=== PATIENT | female | born 1995 | race Two or more races ===

== ENCOUNTER 2017-11-15 16:46 | Emergency (ER) | payer OTHER ==
--- NOTE | 2017-11-15 17:52 | ER Document Report ---
ED GI/ - General Chief Complaint: Vaginal Bleeding Stated Complaint: LOWER BACK PAINS Time Seen by Provider: 11/15/17 17:34 Notes: Patient is a 22-year-old female presents emergency department the chief complaint of pelvic cramping and vaginal spotting. Patient states that she is concerned that she is . Patient states that she had a last menstrual period September 28- after taking Plan B. States that she is sexually active with her and using condoms only. She states that she is taking 5 tests which have all been negative prior to arrival. She states that she has had mild spotting over the past 2 days with mild pelvic cramping and that she is due for her period. She states that she normally gets her menstrual period at the end of the month and sometimes it is 1-2 weeks late. Otherwise she denies any vaginal pain, pyuria, flank pain, nausea or vomiting. She states that she has been spotting and only notices it on the paper when she wipes. She has not had to utilize a pad - Related Data Allergies/Adverse Reactions: No Known Allergies Allergy (Unverified 11/15/17 16:50) Past Medical History - General Last Menstrual Period: August - Social History Smoking Status: Unknown if Ever Smoked Family History: Reviewed & Not Pertinent Patient has suicidal ideation: No Patient has homicidal ideation: No Renal/ Medical History: Denies: Hx Peritoneal Dialysis Review of Systems - Review of Systems Constitutional: No symptoms reported EENT: No symptoms reported Cardiovascular: No symptoms reported Respiratory: No symptoms reported Gastrointestinal: No symptoms reported Genitourinary: No symptoms reported Female Genitourinary: See HPI -: Yes All other systems reviewed and negative Physical Exam - Vital signs Vitals: Temp Pulse Resp BP Pulse Ox 98.9 F 79 16 113/67 98 11/15/17 16:52 11/15/17 16:52 11/15/17 16:52 11/15/17 16:52 11/15/17 16:52 - Notes Notes: PHYSICAL EXAM GENERAL: Alert, interacts well. HEAD: Normocephalic, atraumatic. EYES: Pupils equal, round, and reactive to light. Extraocular movements intact. ENT: Oral mucosa moist, tongue midline. NECK: Full range of motion. Supple. Trachea midline. LUNGS: Clear to auscultation bilaterally, no wheezes, rales, or rhonchi. No respiratory distress. HEART: Regular rate and rhythm. No murmurs, gallops, or rubs. ABDOMEN: Soft, nondistended, nontender. No guarding, rebound, or rigidity.. Bowel sounds present in all 4 quadrants. Female exam deferred EXTREMITIES: Moves all 4 extremities spontaneously. No edema, radial and dorsalis pedis pulses 2/4 bilaterally. No cyanosis. NEUROLOGICAL: Alert and oriented x4. Normal speech. PSYCH: Normal affect, normal mood. SKIN: Warm, dry, normal turgor. No rashes or lesions noted. Course - Re-evaluation Re-evalutation: 11/15/17 19:09 Presentation is most consistent with menstrual uterine bleeding and otherwise well-appearing patient. She is not . No tachycardia or hypotension. Examination is otherwise unremarkable. She denies bleeding through more than 2 pads an hour at any point in time. No indication for ultrasound at this time based on benign exam, vitals and laboratories. No active bleeding at this time. Patient will be started on oral control pills to help discontinue the bleeding. She has been encouraged to follow-up with CONSTRUCTION REPRESENTATIVE. Return precautions have been discussed. - Vital Signs Vital signs: Temp Pulse Resp BP Pulse Ox 99.3 F 79 15 103/65 99 11/15/17 20:05 11/15/17 20:05 11/15/17 20:05 11/15/17 20:05 11/15/17 20:05 - Laboratory Laboratory results interpreted by me: 11/15/17 18:00 Urine Urobilinogen 4.0 H Urine Ascorbic Acid 40 H Discharge - Discharge Clinical Impression: Spotting Condition: Good Disposition: HOME, SELF-CARE Additional Instructions: VAGINAL BLEEDING: You are having an episode of abnormal bleeding. Causes of abnormal vaginal bleeding can include miscarriage or tubal , tumors such as cancer or benign fibroids, medication effects, or hormone imbalance. Testing can eliminate unsuspected , tumors, or infection as a cause. "Dysfunctional uterine bleeding" is due to hormone imbalance, and is especially common at times when the normal cycle is disturbed -- whether by recent , use of control pills or hormones, or impending menopause. If the bleeding is innocent, most commonly a short course of hormones is given to restore the uterus to normal. Sometimes, the normal menstrual cycle corrects itself naturally. Sometimes , brief hormone therapy, or even a D&C is required. Your physician will advise you. Treatment for anemia may be required if bleeding is severe. You should rest and avoid intercourse until the bleeding is controlled. Call the doctor or return for re-examination if you feel faint, have increasing pain, or have a major increase in the amount of bleeding. NORMAL EXAM AND WORKUP: At this time, except for vaginal bleeding, your examination and workup show no significant abnormality. No significant abnormal physical findings were noted. All laboratory, EKG, and imaging (x-ray, CT scans, ultrasound) studies that were ordered show no significant abnormality. Although your examination and all studies that were ordered showed no significant abnormal finding, there are no examinations and no studies that are 100% accurate. There is always the possibility that some abnormality could exist and not be detected with physical examination or within the limits and capabilities of laboratory and other studies. You should return or follow up as you were instructed on your visit today for further evaluation if your symptoms do not resolve. FOLLOW-UP CARE: If you have been referred to a physician for follow-up care, call the physician s office for an appointment as you were instructed or within the next two days. If you experience worsening or a significant change in your symptoms (very heavy bleeding with large clots of blood, passage of tissue, more severe abdominal / pelvic pain or cramping, feeling faint or severe weakness, fever, etc.), notify the physician immediately or return to the Emergency Department at any time for re-evaluation. OBSTETRIC-GYNECOLOGIC (OB-ORTHOTICS PROSTHETICS TECHNICIAN) [facility]YSICI[facility] IN [place]: [facility] [address] [place] [address] [phone] Referrals: [facility] [Provider Group] - Follow up in 1 week
[2017-11-15 18:39] LABS: APPEARANCE,URINE SLIGHTLY-CLOUDY; BILIRUBIN,URINE NEGATIVE (NEGATIVE); COLOR,URINE YELLOW; GLUCOSE, URINE NEGATIVE (NEGATIVE); KETONES,URINE NEGATIVE (NEGATIVE); LEUKOCYTE ESTERASE,URINE NEGATIVE (NEGATIVE); NITRITE,URINE NEGATIVE (NEGATIVE); PROTEIN,URINE NEGATIVE (NEGATIVE); URINE SPECIFIC GRAVITY 1.031
[2017-11-15 20:06] VITALS: BP 103/65
== END 2017-11-15 20:07 | disposition home or self-care (01) ==
LOC: ER 16:46
DX: N93.9 Abnormal uterine and vaginal bleeding, unspecified (principal); R10.2 Pelvic and perineal pain; Z32.02 Encounter for pregnancy test, result negative
CPT/HCPCS: 81001; 81025; 99284

== ENCOUNTER 2018-04-28 19:18 | Emergency (ER) | payer OTHER ==
--- NOTE | 2018-04-28 19:50 | ER Document Report ---
ED Medical Screen (RME) - General Chief Complaint: Overdose Stated Complaint: HEAD PAIN, POSSIBLE PANIC ATTACK Time Seen by Provider: 04/28/18 19:47 Notes: 22 years old female who never lived with her parents raised by her account, from childhood on was had panic attack anxiety and depression, 8 years old she was smoking marijuana, stopped in high school. But continuously had these panic attack depression and suicidal ideations. She has multiple times because injury to herself. Not to the point of killing herself. Today just prior to arrival she started feeling an urge to run to the balcony which she did and jump off the balcony. But she was able to control of sat down and started crying. Therefore she was brought to the ED. TRAVEL OUTSIDE OF THE [place] IN LAST 30 DAYS: No - Related Data Allergies/Adverse Reactions: No Known Allergies Allergy (Unverified 11/15/17 16:50) Past Medical History - Social History Frequency of alcohol use: Social Drug Abuse: Prescription drugs Renal/ Medical History: Denies: Hx Peritoneal Dialysis Physical Exam - Vital signs Vitals: Temp Pulse Resp BP Pulse Ox 98.8 F 82 16 114/73 98 04/28/18 19:37 04/28/18 19:37 04/28/18 19:37 04/28/18 19:37 04/28/18 19:37 Course - Vital Signs Vital signs: Temp Pulse Resp BP Pulse Ox 98.8 F 82 16 114/73 98 04/28/18 19:37 04/28/18 19:37 04/28/18 19:37 04/28/18 19:37 04/28/18 19:37
[2018-04-28 20:24] LABS: APPEARANCE,URINE SLIGHTLY-CLOUDY; BILIRUBIN,URINE NEGATIVE (NEGATIVE); COLOR,URINE YELLOW; GLUCOSE, URINE NEGATIVE (NEGATIVE); KETONES,URINE NEGATIVE (NEGATIVE); LEUKOCYTE ESTERASE,URINE NEGATIVE (NEGATIVE); NITRITE,URINE NEGATIVE (NEGATIVE); PROTEIN,URINE NEGATIVE (NEGATIVE); URINE SPECIFIC GRAVITY 1.017
[2018-04-28 20:37] LABS: URINE AMPHETAMINES SCREEN NEGATIVE; URINE BARBITURATES SCREEN NEGATIVE; URINE BENZODIAZEPINES SCREEN NEGATIVE; URINE COCAINE SCREEN NEGATIVE; URINE MARIJUANA (THC) SCREEN NEGATIVE; URINE METHADONE SCREEN NEGATIVE; URINE PHENCYCLIDINE SCREEN NEGATIVE
[2018-04-28] MEDS ORDERED: ACETAMINOPHEN 325 MG TABLET PO ONE (20:37)
[2018-04-28] MEDS ORDERED: HALOPERIDOL 5 MG TABLET PO ONE (20:37)
--- NOTE | 2018-04-28 20:42 | ER Document Report ---
ED General - General Chief Complaint: Overdose Stated Complaint: HEAD PAIN, POSSIBLE PANIC ATTACK Time Seen by Provider: 04/28/18 19:47 Notes: Patient is a 22-year old female with a past medical history of anxiety and panic attack who presents with ongoing suicidal ideation after having an urge to jump off the balcony just prior to arrival. The patient states that she developed a panic attack, rushed outside to get fresh air, looked over the railing and seriously consider jumping. She states that she has frequent urges to but has hesitation about harming herself. She states that she has never had such a strong urge in the past which scared her and prompted them to come to the emergency department. The patient also reports that she has had a dull, throbbing, global headache today that started gradually this morning and has gotten progressively worse since that time. Nothing improves or worsens the headache. She states this is not a typical headache for her. She denies any associated weakness or numbness. No altered mental status. She has tried ibuprofen without relief. TRAVEL OUTSIDE OF THE [place] IN LAST 30 DAYS: No - Related Data Allergies/Adverse Reactions: No Known Allergies Allergy (Unverified 11/15/17 16:50) Past Medical History - General Information source: Patient - Social History Smoking Status: Current Some Day Smoker Frequency of alcohol use: Social Drug Abuse: Prescription drugs Lives with: Spouse/Significant other Family History: Reviewed & Not Pertinent Patient has suicidal ideation: No Patient has homicidal ideation: No Renal/ Medical History: Denies: Hx Peritoneal Dialysis Review of Systems - Review of Systems Notes: Constitutional: Negative for fever. HENT: Negative for sore throat. Eyes: Negative for visual changes. Cardiovascular: Negative for chest pain. Respiratory: Negative for shortness of breath. Gastrointestinal: Negative for abdominal pain, vomiting or diarrhea. Genitourinary: Negative for dysuria. Musculoskeletal: Negative for back pain. Skin: Negative for rash. Neurological: Positive for headache 10 point ROS negative except as marked above and in HPI. Physical Exam - Vital signs Vitals: Temp Pulse Resp BP Pulse Ox 98.8 F 82 16 114/73 98 04/28/18 19:37 04/28/18 19:37 04/28/18 19:37 04/28/18 19:37 04/28/18 19:37 Interpretation: Normal Notes: PHYSICAL EXAMINATION: GENERAL: Well-appearing, well-nourished and in no acute distress. HEAD: Atraumatic, normocephalic. EYES: Pupils equal round and reactive to light, extraocular movements intact, sclera anicteric, conjunctiva are normal. ENT: nares patent, oropharynx clear without exudates. Moist mucous membranes. NECK: Normal range of motion, supple without lymphadenopathy LUNGS: Breath sounds clear to auscultation bilaterally and equal. No wheezes rales or rhonchi. HEART: Regular rate and rhythm without murmurs ABDOMEN: Soft, nontender, normoactive bowel sounds. No guarding, no rebound. No masses appreciated. EXTREMITIES: Normal range of motion, no pitting or edema. No cyanosis. NEUROLOGICAL: Face symmetric. Tongue protrudes midline. Extraocular motions intact. Pupils are 2 mm and equally reactive. Normal speech, normal gait. 5 out of 5 strength in both the distal and proximal upper and lower extremities bilaterally. Sensation is grossly intact throughout. Finger to nose testing normal. Pronator drift normal. PSYCH: Normal mood, normal affect. SKIN: Warm, Dry, normal turgor, no rashes or lesions noted. Course - Re-evaluation Re-evalutation: 04/28/18 20:39 Presentation of a headache that appears to be most consistent with tension versus migrainous type headache. Headache was not maximal in onset, patient has no focal neurologic deficits, no nuchal rigidity, vital signs within normal limits, no papilledema, and patient is overall well in appearance. Based on clinical history and examination I do not suspect an acute subarachnoid hemorrhage, dural venous sinus thrombosis, acute meningitis, or intercranial mass. Given my low clinical suspicion for any acute life-threatening etiology, I do not feel advanced neuro imaging is indicated at this time. Patient has been given oral haloperidol and proven for treatment of the headache. In regards to the patient's suicidal ideation. She does report a long-standing history of a chronic desire to but no specific plan to harm herself. The patient did not make any attempt on her life today but had a serious consideration of jumping from a balcony. The patient does admit to an ongoing desire to but denies any specific ongoing suicidal ideation. I do believe it is to the patient's benefit to remain in the emergency department and speak with our behavioral health services in the morning and she is in agreement. Her medical screening exam is otherwise completely on markable. She is otherwise cleared for evaluation and disposition by behavioral health services in the morning. - Vital Signs Vital signs: Temp Pulse Resp BP Pulse Ox 97.6 F 72 20 100/55 L 97 04/29/18 00:45 04/29/18 00:45 04/29/18 00:45 04/29/18 00:45 04/29/18 00:45 - Laboratory Result Diagrams: 04/28/18 20:45 04/28/18 20:45 Laboratory results interpreted by me: 04/28/18 04/28/18 20:00 20:45 Creatinine 0.50 L Glucose 111 H Urine Blood SMALL H Urine Urobilinogen 2.0 H Acetaminophen < 10 L Discharge - Discharge Clinical Impression: Suicidal ideation Headache Qualifiers: Headache type: tension-type Headache chronicity pattern: acute headache Intractability: not intractable Qualified Code(s): G44.209 - Tension-type headache, unspecified, not intractable
[2018-04-28 21:04] LABS: ABSOLUTE EOSINOPHILS # (AUTO) 0.1 10^3/uL (0.0-0.6); ABSOLUTE MONOCYTES (AUTO) 0.7 10^3/uL (0.1-1.4); BASOPHILS % (AUTO) 0.2 % (0-2); HEMATOCRIT 41.4 % (36.0-47.0); HEMOGLOBIN 14.3 g/dL (12.0-15.5); LYMPHOCYTES % (AUTO) 38.8 % (13-45); MEAN CORPUSCULAR HEMOGLOBIN 31.2 pg (27.0-33.4); MEAN CORPUSCULAR HGB CONC 34.6 g/dL (32.0-36.0); MEAN CORPUSCULAR VOLUME 90 fl (80-97); MONOCYTES % (AUTO) 8.5 % (3-13); PLATELET COUNT 295 10^3/uL (150-450); RED BLOOD COUNT 4.58 10^6/uL (3.72-5.28); RED CELL DISTRIBUTION WIDTH 13.1 % (11.5-14.0); SEGMENTED NEUTROPHILS % (AUTO) 51.5 % (42-78); TOTAL CELLS COUNTED % (AUTO) 100 %; WHITE BLOOD COUNT 7.8 10^3/uL (4.0-10.5)
[2018-04-28 21:20] LABS: ALANINE AMINOTRANSFERASE 44 U/L (9-52); ALBUMIN 4.5 g/dL (3.5-5.0); ALKALINE PHOSPHATASE 70 U/L (38-126); ANION GAP 14 (5-19); ASPARTATE AMINO TRANSFERASE 27 U/L (14-36); BILIRUBIN,DIRECT 0.2 mg/dL (0.0-0.4); BILIRUBIN,TOTAL 0.7 mg/dL (0.2-1.3); BLOOD UREA NITROGEN 9 mg/dL (7-20); CALCIUM 9.6 mg/dL (8.4-10.2); CARBON DIOXIDE 25 mmol/L (22-30); CHLORIDE 104 mmol/L (98-107); GLUCOSE 111 mg/dL (75-110); POTASSIUM 4.1 mmol/L (3.6-5.0); SALICYLATE 4.5 mg/dL (2.0-20.0); SODIUM 142.6 mmol/L (137-145); TOTAL PROTEIN 7.5 g/dL (6.3-8.2)
[2018-04-28 21:21] LABS: ACETAMINOPHEN < 10 ug/mL (10-30); ALCOHOL < 10 mg/dL (NONE DETECTED)
[2018-04-29 00:57] VITALS: BP 100/55
[2018-04-29] MEDS ORDERED: DIPHENHYDRAMINE HCL 25 MG CAPSULE PO ONE (01:53)
[2018-04-29] MEDS ORDERED: CITALOPRAM HYDROBROMIDE 20 MG TABLET PO SCH (10:00)
[2018-04-29] MEDS ORDERED: BUSPIRONE HCL 10 MG TABLET PO SCH (10:00)
--- NOTE | 2018-04-29 10:31 | ER Document Report ---
Doctor's Note Notes: 04/29/18 10:30 Rounds: Patient being evaluated for suicidal ideation, depression, and anxiety and panic attacks. Says her situation is very stressful at this time as there is a large amount of money needed for her to remain in this country when her is deployed, as an active duty [employer]. Labs are all essentially normal except for positive drug screen for opiates. Vital signs were all essentially normal. Patient says she feels better this morning. Denies feeling suicidal at this time. Patient appears to be medically stable for transfer or discharge. Vonda Wright MD
--- NOTE | 2018-04-29 11:39 | PSYCHOLOGICAL NOTE ---
Psych Note - Psych Note Psych Note: Reason for consult: suicidal ideation pt states has had anxiety and depression since 8th grade. states last night she thought about jumping from balcony. pt has been scratching her left wrist excessively. states still feels like harming self. w/pt. Patient states that she had a headache and took one of her 's pain killers at 11:30am yesterday morning. Patient said that she slept for a little while but when she woke up she still had a head ache, so she took two over the counter pain relief pills. She went back to sleep and woke up at about 5:30pm. Patient reports that around 7pm she began to experience at panic attack. She states that she was unable to breathe and her chest began to tighten. Patient disclosed that she went to the balcony of her apartment to get some fresh air but as she looked down the balcony, she thought about jumping. Patient states that she had been on the balcony several times before but had never thought about jumping until today. Patient states that she did not jump because she was afraid to . Patient's was bedside and confirmed her account of events. Patient's stated that although is despondent over immigration issues he does not have any reason to believe that she wanted to kill herself. 's command is assisting this family with immigration resources. Patient is alert and oriented to person, place, time and circumstance. Eye contact was well maintained. Patient presents with an organized and linear thought process. Conversational speech was within normal rate, tone and prosody. Intellectual abilities appear to be within the average range. Attention and concentration are good. Insight, judgment and impulse control are fair. Patient endorses passive suicidal ideation but has no intent, plans or means. Medication recommendations per [facility]'s contracted psychiatrist Dr. Sue ARIAS are as follows: Celexa 20mg daily Buspar 5mg twice daily Diagnosis 300.02 (F41.1) Generalized Anxiety Disorder per patient report 296.21 (F32.0) Major Depressive Disorder per patient report Impression/Plan: Patient is cleared from acute psychiatric services. Patient endorses passive suicidal ideation with no intent, plans or means. Patient was able to engage the clinician with healthy coping strategies in the event that she feels this way again. Patient was also given resource list of outpatient providers to assist upon discharge. Dr. Peterson was consulted on the care and management of this patient; attending physician is in agreement with recommendations and disposition.
--- NOTE | 2018-04-29 14:11 | EKG REPORT ---
SEVERITY:- NORMAL ECG - SINUS RHYTHM : Confirmed by: Erik Kidd MD 29-Apr-2018 14:10:53
== END 2018-04-29 11:29 | disposition home or self-care (01) ==
LOC: ER 19:18
DX: R45.851 Suicidal ideations (principal); G44.209 Tension-type headache, unspecified, not intractable; F41.1 Generalized anxiety disorder; F32.9 Major depressive disorder, single episode, unspecified; F17.200 Nicotine dependence, unspecified, uncomplicated; F19.10 Other psychoactive substance abuse, uncomplicated
CPT/HCPCS: 36415; 80053; 80307; 81001; 85025; 93005; 93010; 99285